=== PATIENT | male | born 1985 | race African-American/Black ===

== ENCOUNTER 2017-05-09 10:34 | Emergency (ER) | payer SELFPAY ==
[2017-05-09 10:40] VITALS: TEMP 36.7
[2017-05-09] MEDS ORDERED: PSEUDOEPHEDRINE HCL 30 MG TAB PO STA (11:12)
[2017-05-09] MEDS ORDERED: OFLOXACIN 0.3% OP SOLN 5 ML BTL OTR STA (11:12)
[2017-05-09] MEDS ORDERED: AMOX500T3 PO (11:19)
--- NOTE | 2017-05-09 11:19 | EMERGENCY ROOM VISIT NOTE ---
History First contact with patient: 10:50 Chief Complaint: EAR PAIN Stated Complaint: EAR CLOGGED History of Present Illness The patient is a 32 year old male who presents to the Emergency Room via private vehicle with complaints of "ear clogged". The patient states that he has had decreased hearing in the right ear for the past week. He states that it feels as though his ear is clogged. He also notes that it sounds funny. He states he has tried eardrops and flushing the ear without relief. He also states that he went swimming 2 weeks ago. He denies using any Q-tips, pain, fevers or chills. He also notes that he attempted transgender surgery, and had legal injections into the gluteal region of silicone. This was performed about 10 years ago. He states that now he has pain secondary to this for the past few months. Review of Systems A complete 6-point Review of Systems was discussed with the patient, with pertinent positives and negatives listed in the History of Present Illness. All remaining Review of Systems questions can be considered negative unless otherwise specified. Past Medical/Surgical History No pertinent. Family History No pertinent. Social History Smoking Status: Former Smoker Patient currently lives locally. Current/Historical Medications Scheduled Amoxicillin (Amoxil), 1 TAB PO BID Multiple Vitamin (Multi Vitamin), 1 TAB PO DAILY Physical Exam Vital Signs Date Time Temp Pulse Resp B/P (MAP) Pulse Ox O2 Delivery O2 Flow Rate FiO2 05/09/17 11:56 65 144/97 97 05/09/17 10:40 36.7 66 20 166/89 96 Room Air Physical Exam VITAL SIGNS - Vital signs and nursing notes were reviewed. Afebrile, hypertensive, not tachycardic and is saturating well on room 96%. GENERAL -32-year-old male appearing his stated age who is in no acute distress. Communicates well with provider and answers questions appropriately. SKIN - Without rashes. No petechial rashes. The gluteal region does reveal hardened, nodular-like regions overlying the lateral and posterior aspects. There is no erythema or undue edema. No fluctuant mass. HEAD - NC/AT. EYES - PERRL with EOMI bilaterally. Sclera anicteric. Bulbar conjunctiva pink and moist with no injection noted. EARS - No deformities of external structures noted on gross examination bilaterally. No pain elicited with palpation of the tragus bilaterally. External auditory canals without discharge or otorrhea of the left canal, the right ear canal does reveal slight irritation and erythema there is also slight edema. Tympanic membranes pearly gonzalez without retraction or bulging of the left , but the right does reveal retraction, and evidence of serous fluid behind the eardrum. No perforation. NOSE - Midline and without cyanosis. No epistaxis or purulent drainage noted. Septum midline without deviation or septal hematoma noted. MOUTH/OROPHARYNX - Without perioral cyanosis. Buccal mucosa pink and moist and without leukoplakia. Tongue midline with equal elevation of palate bilaterally. No tonsillar hypertrophy, erythema, or exudates noted. Fair dentition noted. EXTREMITIES - No clubbing or peripheral cyanosis. No pretibial edema present. + 5/5 strength noted in UE/LE bilaterally. NEUROLOGIC - Cranial nerves II through XII grossly intact. Sensory intact to light touch throughout. Medical Decision & Procedures Medications Administered Medications (Trade) Dose Ordered Sig/Sheila Route Start Time Stop Time Status Last Admin Dose Admin Ofloxacin (Ocuflox 0.3% Oph Soln) 10 drops NOW STAT OTR 05/09/17 11:12 05/09/17 11:13 DC 05/09/17 11:29 10 DROPS Pseudoephedrine HCl (Sudafed Tab) 30 mg NOW STAT PO 05/09/17 11:12 05/09/17 11:13 DC 05/09/17 11:23 30 MG Medical Decision Patient was seen and evaluated as above. He presents to us today with sensation of his ear being clogged. Examination does reveal an erythematous canal, as well as a retracted TM. I suspect acute serous otitis media, with early development of otitis externa secondary irritation/recent swimming. He' ll be treated with a regimen of amoxicillin for the serous otitis media in the event that it could be bacterial developing, as well as eardrops to help prevent /treat infection of the external ear canal as well as Sudafed to help with congestion behind the eardrum. I did gently cleanse the inferior portion of the ear canal wax out, with a specialized. No damage was created. As far as the nodular-like densities in his right gluteal region, I do recommend following up with a family doctor with subsequent plastic surgery potential intervention. I suspect that the body screening scar tissue/silicone has extravasated between the skin and the muscle. At this time it does not appear infected, or emergent. Because he does not have insurance, I am directing him to the [facility] in the area as well as helping enlist the help of our bottle caser in helping the patient establish follow-up. I do believe that this is reasonable. The patient appears stable for discharge, and is to return with worsening. He was educated upon worrisome symptoms which to return, had questions or discharge, and was discharged home in good condition. In evaluation treatment this patient following differential diagnoses were entertained: Cerumen impaction, serous otitis media, otitis media, otitis externa, among others. Impression Primary Impression: Acute serous otitis media of right ear Additional Impression: Irritation of external ear canal Departure Information Dispostion Home / Self-Care Condition GOOD Prescriptions Amoxicillin (AMOXIL) 500 Mg Tab 1 TAB PO BID for 10 Days, #20 TAB Prov: Sunny Fields PA-C 05/09/17 Referrals No Doctor, Assigned (PCP) [facility] Corina Acosta MD Patient Instructions My [facility] Additional Instructions You have been treated in the Emergency Department for an Inner Ear Infection ( Otitis Media) as well as irritation of external ear canal. You were prescribed Amoxicillin to be taken twice daily for 10 days. This is an antibiotic. All antibiotics have the potential to cause diarrhea. Stop this medication and contact a medical provider if you were to develop any significant adverse side effects including: wheezing, shortness of breath, passing out, vomiting, or a diffuse rash. Always take antibiotics as directed and COMPLETE the ENTIRE course regardless of the improvement of your symptoms. Use the ofloxaicn drops Instill 10 drops into affected ear(s) once daily for 7 days for ear canal irritation At the pharmacy please request Sudafed. This is actually behind the counter. 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 I do recommend 60 mg every 6 hours as needed for congestion. Please the next 2-3 days to help with the congestion on the inner portion of the ear. For pain and fever control, you can use the following [id number] medicines (if >12 yo): - Regular strength (325mg/tab) Tylenol (acetaminophen) 2 tabs every 4-6 hours as needed. Do not exceed 12 tablets in a 24 hour period. Avoid taking more than 3 grams (3000 mg) of Tylenol per day. This includes any other sources of acetaminophen you may take on a regular basis. - Regular strength (200 mg/tab) Advil (ibuprofen) 1-2 tabs every 4-6 hours as needed. Do not exceed a dose of 3200 mg per day. You should follow-up with your Primary Care Provider from today's Emergency Department visit. Please utilize the paperwork to contact [facility]. Please follow-up regarding your blood pressure. Return to the emergency department if you develop the following symptoms despite treatment course outlined above: headache, fever, intractable pain, increased redness, swelling, or purulent discharge. Please return to emergency department with any new/concerning symptoms. Problem Qualifiers
[2017-05-09] MEDS ORDERED: MULT-1027 PO (11:20)
[2017-05-09 11:56] VITALS: BP 144/97; PULSE 65; O2SAT 97
== END 2017-05-09 11:57 | disposition home or self-care (01) ==
LOC: C.EDB 10:37 → C.EDD 11:57
DX: H65.01 Acute serous otitis media, right ear (principal); Z87.891 Personal history of nicotine dependence